=== PATIENT | male | born 2000 | race Two or more races ===

== ENCOUNTER → 2024-07-22 | Outpatient (CLI) | payer OTHER, SELFPAY ==
--- NOTE | 2024-07-22 16:04 | XR_ITS ---
Examination: Ultrasound soft tissue knee Technique: Grayscale sonographic images soft tissue knee Exam date and time: July 22, 2024 1617 hrs. Indications: Left knee patellar region pain and swelling 8 days Findings: No cystic or solid mass at the area concern Impression: No cystic or solid mass at the area concern
== END | disposition home or self-care (01) ==
PROVIDERS: PCP Family Medicine; Referring Provider Family Medicine; Visit Provider Family Medicine
DX: M25.562 Pain in left knee (principal)
CPT/HCPCS: 76882